=== PATIENT | male | born 1975 | race African-American/Black ===

== ENCOUNTER 2017-06-02 15:56 | Emergency (ER) | payer MEDICAID ==
[~2017-06-02] VITALS: Ht 180.3 cm; Wt 79.0 kg
[2017-06-02] MEDS ORDERED: HYDROCODONE/ACETAMINOPHEN 5/325MG TABLET PO ONE (17:30)
[2017-06-02] MEDS ORDERED: LIDOCAINE HCL 1%/EPI 1:200,000 30 ML VIAL MC ONE (17:30)
[2017-06-02] MEDS ORDERED: TETANUS, DIPHTHERIA, PERTUSSIS VAC/PF 0.5ML (>7YR OLD) IM ONE (17:30)
[2017-06-02 18:56] VITALS: BP 128/82
== END 2017-06-02 18:55 | disposition home or self-care (01) ==
LOC: ER 16:29
DX: L02.413 Cutaneous abscess of right upper limb (principal); L53.9 Erythematous condition, unspecified
CPT/HCPCS: 10060; 90471; 90715; 99283; X7700; Z7610

== ENCOUNTER 2017-09-10 20:45 | Emergency (ER) | payer MEDICAID ==
[~2017-09-10] VITALS: Ht 180.3 cm; Wt 79.5 kg
[2017-09-10 22:33] VITALS: BP 152/95
== END 2017-09-10 23:00 | disposition home or self-care (01) ==
LOC: ER 20:45
DX: R51 Headache (principal); S16.1XXA Strain of muscle, fascia and tendon at neck level, initial encounter; X58.XXXA Exposure to other specified factors, initial encounter; Y93.9 Activity, unspecified; Y92.9 Unspecified place or not applicable
CPT/HCPCS: 99281

== ENCOUNTER 2019-04-20 16:55 | Emergency (ER) | payer MEDICAID ==
[~2019-04-20] VITALS: Ht 182.9 cm; Wt 79.0 kg
[2019-04-20] MEDS ORDERED: KETOROLAC 60MG/2ML VIAL IM ONE (17:15)
[2019-04-20] MEDS ORDERED: DEXAMETHASONE 4MG TABLET PO ONE (17:15)
[2019-04-20 17:38] VITALS: BP 150/92
== END 2019-04-20 20:48 | disposition home or self-care (01) ==
LOC: ER 17:45
DX: S39.012A Strain of muscle, fascia and tendon of lower back, initial encounter (principal); Z98.890 Other specified postprocedural states; Z91.018 Allergy to other foods; X50.0XXA Overexertion from strenuous movement or load, initial encounter; Y93.89 Activity, other specified; Y92.89 Other specified places as the place of occurrence of the external cause; Y99.8 Other external cause status
CPT/HCPCS: 96372; 99283; J1885; J8540

== ENCOUNTER 2022-06-19 11:09 | Emergency (ER) | payer MEDICAID ==
[~2022-06-19] VITALS: Ht 182.9 cm; Wt 79.0 kg
[2022-06-19 11:26] VITALS: BP 139/81
[2022-06-19] MEDS ORDERED: IBUP-2029 PO (18:00)
[2022-06-19] MEDS ORDERED: BO1 TP (18:00)
== END 2022-06-19 13:26 | disposition left against medical advice (07) ==
LOC: ER 11:09
DX: Z53.21 Procedure and treatment not carried out due to patient leaving prior to being seen by health care provider (principal)

== ENCOUNTER 2022-06-19 15:09 | Emergency (ER) | payer MEDICAID ==
[~2022-06-19] VITALS: Ht 182.9 cm; Wt 82.0 kg
[2022-06-19 15:19] VITALS: BP 133/78
[2022-06-19] MEDS ORDERED: IBUPROFEN 600MG TABLET PO STA (17:08)
[2022-06-19] MEDS ORDERED: BO1 TP (18:00)
[2022-06-19] MEDS ORDERED: IBUP-2029 PO (18:00)
== END 2022-06-19 18:30 | disposition home or self-care (01) ==
LOC: ER 15:09
DX: S50.11XA Contusion of right forearm, initial encounter (principal); S00.81XA Abrasion of other part of head, initial encounter; M79.645 Pain in left finger(s); I10 Essential (primary) hypertension; Z91.018 Allergy to other foods; Y04.0XXA Assault by unarmed brawl or fight, initial encounter; Y93.89 Activity, other specified; Y92.89 Other specified places as the place of occurrence of the external cause; Y99.8 Other external cause status
CPT/HCPCS: 73140; 99283